=== PATIENT | female | born 1965 | race Caucasian/White ===

== ENCOUNTER → 2020-02-01 09:39 | Outpatient (CLI) | payer OTHER, SELFPAY ==
[2020-02-01 10:38] LABS: Basophils % 0.4 % (0.1-2.0); Eosinophils # 0.2 K/mm3 (0.0-0.4); Eosinophils % 2.4 % (0.1-12.0); Hemoglobin 15.1 g/dL (12.2-16.2); Lymphocytes # 1.8 K/mm3 (0.7-4.5); Lymphocytes % 28.9 % (10-50); Mean Corpuscular HGB Conc 34.4 g/dL (31.8-35.4); Mean Corpuscular Hemoglobin 32.7 pg (27.0-31.2); Mean Corpuscular Volume 95.1 fl (81-99); Mean Platelet Volume 7.2 fl (7.4-10.4); Monocytes # 0.4 K/mm3 (0.1-1.0); Monocytes % 6.8 % (1.7-9.3); Neutrophils # 3.9 K/mm3 (1.8-7.8); Neutrophils % 61.4 % (37.0-80.0); Platelet Count 283 K/mm3 (142-424); Red Blood Count 4.63 M/mm3 (4.20-5.40); Red Cell Distribution Width 12.7 % (11.5-17.5); White Blood Count 6.4 K/mm3 (4.8-10.8)
[2020-02-01 11:03] LABS: Hemoglobin A1C 5.6 % (4.0-6.0)
[2020-02-01 11:18] LABS: Chloride 106 mmol/L (98-107); Potassium 4.7 mmoL/L (3.5-5.1); Sodium 142 mmol/L (136-145)
[2020-02-01 11:20] LABS: Alanine Aminotransferase 12 U/L (12-78); Aspartate Amino Transferase 22 U/L (14-36); Blood Urea Nitrogen 17 mg/dl (7-17); Estimated Glomerular Filt Rate 87 ml/min (>60); GFR (African American) 105 ML/MIN (>60)
[2020-02-01 11:21] LABS: Albumin Level 4.2 g/dl (3.5-5.0); Albumin/Globulin Ratio 1.8 (1.1-1.8); Alkaline Phosphatase 50 U/L (38-126); Anion Gap 12.7 mEq/L (5-15); Bilirubin,Total 0.5 mg/dl (0.2-1.3); Calcium 9.7 mg/dl (8.4-10.2); Carbon Dioxide 28 mmol/L (22.0-30.0); Chol/HDL Ratio 4.1 (1-3.5); Cholesterol 208 mg/dl (140-200); Globulin 2.4 g/dL (1.3-3.2); Glucose 91 mg/dl (74-100); HDL Cholesterol 51 mg/dl (40-60); Total Protein,Serum 6.6 g/dl (6.3-8.2); Triglycerides 103 mg/dl (30-150); VLDL Cholesterol 21 mg/dL (0-40)
== END ==
PROVIDERS: Visit Provider Internal Medicine Adolescent Medicine
DX: Z00.00 Encounter for general adult medical examination without abnormal findings (principal)
CPT/HCPCS: 36415; 80053; 80061; 83036; 85025

== ENCOUNTER → 2021-04-23 12:59 | Outpatient (CLI) | payer OTHER, SELFPAY | PROVIDERS: PCP Internal Medicine Adolescent Medicine; Visit Provider Nurse Practitioner | DX: U07.1 COVID-19 (principal) | CPT/HCPCS: C9803; U0003; U0005 ==

== ENCOUNTER → 2021-04-29 09:12 | Outpatient (CLI) | payer OTHER, SELFPAY ==
--- NOTE | 2021-04-29 16:46 | PC.NURSE ---
informed patient she is positive
== END ==
PROVIDERS: Visit Provider Nurse Practitioner
DX: U07.1 COVID-19 (principal)
CPT/HCPCS: C9803; U0003; U0005

== ENCOUNTER → 2022-08-02 08:03 | Outpatient (POV) | payer OTHER, SELFPAY | PROVIDERS: Visit Provider Dermatology | DX: Z00.00 Encounter for general adult medical examination without abnormal findings (principal) ==

== ENCOUNTER 2023-06-17 09:12 | Outpatient (CLI) | payer BC, SELFPAY ==
[2023-06-17 10:00] LABS: Basophils % 0.4 % (0.1-2.0); Eosinophils # 0.2 K/mm3 (0.0-0.4); Eosinophils % 2.9 % (0.1-12.0); Hematocrit 41.4 % (37.0-47.0); Hemoglobin 13.7 g/dL (12.2-16.2); Lymphocytes # 1.9 K/mm3 (0.7-4.5); Lymphocytes % 30.3 % (10-50); Mean Corpuscular HGB Conc 33.1 g/dL (31.8-35.4); Mean Corpuscular Hemoglobin 31.9 pg (27.0-31.2); Mean Corpuscular Volume 96.3 fl (81-99); Mean Platelet Volume 7.5 fl (7.4-10.4); Monocytes # 0.4 K/mm3 (0.1-1.0); Monocytes % 6.9 % (1.7-9.3); Neutrophils # 3.8 K/mm3 (1.8-7.8); Neutrophils % 59.6 % (37.0-80.0); Platelet Count 324 K/mm3 (142-424); Red Cell Distribution Width 12.7 % (11.5-17.5); White Blood Count 6.4 K/mm3 (4.8-10.8)
[2023-06-17 10:23] LABS: Alanine Aminotransferase 22 U/L (12-78); Albumin Level 4.2 g/dl (3.5-5.0); Albumin/Globulin Ratio 1.8 (1.1-1.8); Alkaline Phosphatase 63 U/L (38-126); Anion Gap 10.4 mEq/L (5-15); Aspartate Amino Transferase 25 U/L (14-36); Bilirubin,Total 0.6 mg/dl (0.2-1.3); Blood Urea Nitrogen 17 mg/dl (7-17); Calcium 9.6 mg/dl (8.4-10.2); Carbon Dioxide 30 mmol/L (22.0-30.0); Chloride 105 mmol/L (98-107); Chol/HDL Ratio 4.7 (1-3.5); Cholesterol 239 mg/dl (140-200); Estimated Glomerular Filt Rate 86 ml/min (>60); GFR (African American) 104 ML/MIN (>60); Globulin 2.4 g/dL (1.3-3.2); Glucose 88 mg/dl (74-100); HDL Cholesterol 51 mg/dl (40-60); Potassium 4.4 mmoL/L (3.5-5.1); Sodium 141 mmol/L (136-145); Total Protein,Serum 6.6 g/dl (6.3-8.2); Triglycerides 93 mg/dl (30-150); VLDL Cholesterol 19 mg/dL (0-40)
[2023-06-17 10:34] LABS: Direct LDL Cholesterol 138.79 mg/dL (100-129)
[2023-06-17 10:40] LABS: 25-OH Vitamin D, Total 36.2 ng/mL (30-100)
[2023-06-17 11:09] LABS: Hemoglobin A1C 5.2 % (4.0-6.0)
[2023-06-17 11:13] LABS: Vitamin B12 969 pg/mL (239-931)
== END 2023-06-17 23:59 ==
PROVIDERS: PCP Internal Medicine Adolescent Medicine; Visit Provider Internal Medicine Adolescent Medicine
DX: R53.81 Other malaise (principal); R53.83 Other fatigue; E78.5 Hyperlipidemia, unspecified; Z86.39 Personal history of other endocrine, nutritional and metabolic disease
CPT/HCPCS: 36415; 80053; 80061; 82306; 82607; 83036; 85025

== ENCOUNTER 2025-02-04 08:57 | Outpatient (CLI) | payer BC, SELFPAY ==
--- OUTSIDE RECORDS SUMMARY | 2025-02-04 09:01 | XMS_ITS | Clinical Summary ---
Author Organization [facility] Address [address] [place] [address] Care Team Providers Care Computer Programmer Analyst Name Role Phone Michael Santana MD Primary Care Provider + [phone] Allergies No known active allergies Family History Medical History Relation Name Comments Breast cancer Neg Hx Ovarian cancer Neg Hx Social History Tobacco Use Types Packs/Day Years Used Date Smoking Tobacco: Never Assessed Abuse Screen Answer Date Recorded Unsafe at Home or Work/School Not on file Feels Threatened by Someone? Not on file 03/2023 Does Anyone Keep You from Co ntacting Others or Doint Things Outside the Home? Not on file 02/15/2023 Physical Sign of Abuse Present Not on file 1 Housing Stability Answer Date Recorded Current Living Arrangements Not on file 02/05 Potentially Unsafe Housing Conditions Not on joe e 02/15/2023 Family and Community Support Answer Joshua e Recorded Help with Day-to-Day Activities Not on file 02/15/2023 Lonely or Isolated Not on file 02/15/2023 Employment Answer Date Recorded Do you want help finding or keeping work or a dez b? Not on file 02/15/2023 Disabilities Answer Date Recorded Concentrating, Remembering, or Making Decisions Difficulty Not on file 02/15/2023 Doing Errands Independently Difficulty Not on fi le 02/15/2023 Education Answer Date Recorded Help with school or training? Not on file Preferred Language Not on file 02/15/2023 Comments No Sex and Gender Information Value Date Recorded Sex Assigned at Not on file Legal Sex Female 12:48 PM EDT Gender Identity Not on file Sexual Orientation Not on file Plan of Treatment Health Maintenance Due Date Last Done Comments ANNUAL PHYSICAL 1965 Annual Gynecologic Pelvic an d Breast Exam 1965 HEPATITIS C SCREENING 1965 COLOGUARD 2010 COLON CANCER SCREENING 5 YEA R SIGMOIDOSCOPY 2010 COLONOSCOPY 2010 [address] CANCER SCREENING 2010 CT COLONOGRAPHY 2010 FECAL OCCULT BLOOD TEST 2010 FIT Testing (1 year) 2010 Pneumococcal Vaccine 50+ (1 of 1 - PCV) 2015 ZOSTER VACCINE (1 of 2) 2015 INFLUENZA VACCINE 12/06/2024 MAMMOGRAM 03/06/2026 03/06/2024, 02/05, 02/10/2022, Additional history exists TDAP/TD VACCINES (2 - Td or Tdap) 01/09/2034 024 Procedures Procedure Name Priority Date/Time Associated Diagnosis Comments MAMMO SCREENING DIGITAL TOMOSYNTHESIS BILATERAL W CAD Routine 03/06/2024 9:09 AM EDT Visit for screening mammogram from Last 3 Months or Most Recently Relevant to Health Maintenance Results * Mammo Screening Digital Tomosynthesis Bilateral With CAD (03/06/2024 9:09 AM EDT) Anatomical Region Laterality Modality Breast N/A Mammography 03/09/2024 2:04 PM EDT Impressions 03/09/2024 2:04 PM EDT No findings suspicious for malignancy. ACR BI-RADS CATEGORY: 1, NEGATIVE RECOMMENDATION: Yearly mammogram, yearly clinical breast exam, and encourage self breast awareness. CAD was used. The standard false negative rate of mammography is between 10% and 25%. Complex patterns or increased breast density will markedly elevate the false negative rate of mammography. A letter, in lay terminology, with the results of this exam will be mailed to the patient. At our facility, a triangular marker is positioned over a palpable area of concern indicated by the patient. A algaaciq marker is placed over a visible skin lesion. A linear marker indicates a scar. If there is a palpable area of concern, biopsy should be considered regardless of imaging findings. This report was finalized on 03/09/2024 2:[address] Mary Curry MD. Narrative 03/09/2024 2:04 PM EDT DIGITAL SCREENING MAMMOGRAM WITH TOMOSYNTHESIS HISTORY: Routine screening. IMAGE COMPARISON: 02/16/2023, 02/10/2022, 01/01/2021. TECHNIQUE: Low dose full field digital breast tomosynthesis imaging was performed with 2D and 3D acquisitions consisting of bilateral CC and MLO views. FINDINGS: There are scattered areas of fibroglandular density. The fibroglandular pattern appears stable. There is no mass, worrisome microcalcifications, or architectural distortion to suggest development of malignancy. us Dawson Villegas MD IMG MAMMOGRAPHY ORDERABLE S Final Result from Last 3 Months or Most Recently Relevant to Health Maintenance Insurance [facility] PPO Care Teams Computer Programmer Analyst Relationship Specialty Start Date End Date Michael Santana MD [address] [place] [facility] [address] [place], [place] [id number] PCP - General Adolescent Medicine 01/31/24
[2025-02-04 10:00] LABS: Hemoglobin A1C 5.5 % (4.0-6.0)
[2025-02-04 10:10] LABS: Alanine Aminotransferase 14 U/L (12-78); Albumin Level 4.1 g/dl (3.5-5.0); Albumin/Globulin Ratio 1.9 (1.1-1.8); Alkaline Phosphatase 76 U/L (38-126); Anion Gap 10.4 mEq/L (5-15); Aspartate Amino Transferase 21 U/L (14-36); Bilirubin,Total 0.7 mg/dl (0.2-1.3); Blood Urea Nitrogen 14 mg/dl (7-17); Calcium 9.4 mg/dl (8.4-10.2); Carbon Dioxide 28 mmol/L (22.0-30.0); Chloride 104 mmol/L (98-107); Cholesterol 229 mg/dl (140-200); Creatinine,Serum 0.70 mg/dl (0.52-1.04); Estimated Glomerular Filt Rate 85 ml/min (>60); GFR (African American) 103 ML/MIN (>60); Globulin 2.2 g/dL (1.3-3.2); Glucose 83 mg/dl (74-100); HDL Cholesterol 72 mg/dl (40-60); Potassium 4.4 mmoL/L (3.5-5.1); Sodium 138 mmol/L (136-145); Total Protein,Serum 6.3 g/dl (6.3-8.2); Triglycerides 77 mg/dl (30-150)
== END 2025-02-04 23:59 | disposition home or self-care (01) ==
LOC: LAB 08:59
PROVIDERS: PCP Internal Medicine Adolescent Medicine; Visit Provider Internal Medicine Adolescent Medicine
DX: E78.5 Hyperlipidemia, unspecified (principal); Z86.39 Personal history of other endocrine, nutritional and metabolic disease
CPT/HCPCS: 36415; 80053; 80061; 83036